=== PATIENT | male | born 1945 | race Caucasian/White ===

== ENCOUNTER 2018-04-11 23:12 | Inpatient (IN) | payer MEDICARE, OTHER ==
[2018-04-11] MEDS ORDERED: Aspirin 81mg Chewable Tab PO STA (23:33)
--- NOTE | 2018-04-11 23:35 | ED Physician Chart ---
ED Chief Complaint/HPI - Patient Information Date Seen:: 04/11/18 Time Seen:: 23:10 Chief Complaint:: Chest Pain History of Present Illness:: onset x 12 hours of intermittent, pressure, exertional chest pain radiating to left arm with paresthesias; no trauma, H/As, neck pain, SOB, cough, Abd. Pain, A /N/V/D/C, fever, chills, or urinary s/s Allergies:: Allergies Allergy/AdvReac Type Severity Reaction Status Date / Time No Known Allergies Allergy Verified 04/11/18 23:27 Vitals:: Vital Signs - 8 hr 04/11/18 04/11/18 23:12 23:33 Temp 98.2 F 98 F HR 60 63 RR 18 14 BP 143/65 136/63 O2 Sat % 100 99 Historian:: Patient, Family Member Review:: Nurse's Note Reviewed ED Review of Systems - Review of Systems General/Constitutional: No fever, No chills, No weight loss, No weakness, No diaphoresis, No edema, No loss of appetite Skin: No skin lesions, No rash, No bruising Head: No headache, No light-headedness Eyes: No loss of vision, No pain, No diplopia ENT: No earache, No nasal drainage, No sore throat, No tinnitus Neck: No neck pain, No swelling, No thyromegaly, No stiffness, No mass noted Cardio Vascular: Chest pain, No palpitations, No PND, No orthopnea, No edema Pulmonary: SOB, No cough, No sputum, No wheezing GI: No nausea, No vomiting, No diarrhea, No pain, No melena, No hematochezia, No constipation, No hematemesis G/U: No dysuria, No frequency, No hematuria Musculoskeletal: No bone or joint pain, No back pain, No muscle pain Endocrine: No polyuria, No polydipsia Psychiatric: No prior psych history, No depression, No anxiety, No suicidal ideation, No homicidal ideation, No auditory hallucination, No visual hallucination Hematopoietic: No bruising, No lymphadenopathy Allergic/Immuno: No urticaria, No angioedema Neurological: No syncope, No focal symptoms, No weakness, Paresthesia, No headache, No seizure, No dizziness, No confusion, No vertigo ED Past Medical History - Past Medical History Obtainable: Yes Past Medical History: HTN Family History: HTN Social History: Non Smoker, No Alcohol, No Drug Use, Surgical History: None Psychiatricy History: None Medication: Reviewed Family Medical History - Family Member Mother History Unknown: Yes ED Physical Exam - Physical Examination General/Constitutional: Awake, Well-developed, well-nourished, Alert, No distress, GCS 15, Non-toxic appearing, Ambulatory Head: Atraumatic Eyes: Lids, conjuctiva normal, PERRL, EOMI Skin: Nl inspection, No rash, No skin lesions, No ecchymosis, Well hydrated, No lymphadenopathy ENMT: External ears, nose nl, TM canals nl, Nasal exam nl, Lips, teeth, gums nl , Oropharynx nl, Tonsils nl Neck: Nontender, Full ROM w/o pain, No JVD, No nuchal rigidity, No bruit, No mass, No stridor Respiratory: Nl effort/Exclusion, Clear to Auscultation, No Wheeze/Rhonchi/Rales Cardio Vascular: RRR, No murmur, gallop, rubs, NL S1 S2, Carotid/Femoral/Distal pulses equal bilaterally GI: No tenderness/rebounding/guarding, No organomegaly, No hernia, Normal BS's, Nondistended, No mass/bruits, No McBurney tenderness : No CVA tenderness Extremities: No tenderness or effusion, Full ROM, normal strength in all extremities, No edema, Normal digits & nails Neuro/Psych: Alert/oriented, DTR's symmetric, Normal sensory exam, Normal motor strength, Judgement/insight normal, Mood normal, Normal gait, No focal deficits Misc: Normal back, No paraspinal tenderness ED Labs/Radiology/EKG Results - Lab Results Comments:: Reviewed - Radiology Results Comments:: CXR: CM; NAD - EKG Interpretations EKG Time:: 23:13 Rate & Rhythm: 63; NSR Comments:: non-specific st-t changes ED Septic Shock - . Is Septic Shock (SBP<90, OR Lactate>4 mmol\L) present?: No - <6hrs of presentation: Vital Signs: Vital Signs - 8 hr 04/11/18 04/11/18 23:12 23:33 Temp 98.2 F 98 F HR 60 63 RR 18 14 BP 143/65 136/63 O2 Sat % 100 99 ED Reassessment (Disposition) - Reassessment Reassessment Condition:: Improved - Diagnosis Diagnosis:: Dx; Chest Pain; Angina Pectoris; HTN; Hypokalemia; Unstable Angina - Aftercare/Follow up Instructions Aftercare/Follow-Up Instructions:: Counseled pt regarding lab results/diagnosis & need follow up, Counseled pt & family regarding lab results/diagnosis & need follow up - Patient Disposition Discharge/Transfer:: Acute Care w/in this hosp Accepting Physician:: Dr. Dior Time Called:: 19 Time Responded:: 00:20 Admitted to:: Telemetry Spoke to:: Dr. Dior Admitting Medical Physician:: Dr. Dior Condition at Disposition:: Stable, Improved
[2018-04-11 23:39] LABS: % BASOPHILS 0.9 % (0.0-2.0); % EOSINOPHILS 12.5 % (0.0-5.0); % LYMPHOCYTES 23.1 % (20.0-50.0); % MONOCYTES 6.9 % (2.0-10.0); % NEUTROPHILS 56.6 % (40.0-80.0); BASOPHILE ABSOLUTE 0.1 Th/cumm (0-0.2); HEMATOCRIT 46.8 % (41.0-60); HEMOGLOBIN 15.4 gm/dL (12-16); LYMPHOCYTE ABSOLUTE 1.9 Th/cmm (1.5-3.0); MEAN CELL VOLUME 84.6 fl (80-99); MEAN CORPUSCULAR HEMOGLOBIN 27.9 pg (27.0-31.0); MEAN PLATELET VOLUME 7.8 fl; MONOCYTE ABSOLUTE 0.6 Th/cmm (0.3-1.0); NEUTROPHILE ABSOLUTE 4.7 Th/cmm (1.8-8.0); PLATELET COUNT 211 Th/cmm (150-400); RED BLOOD COUNT 5.53 Mil/cmm (3.80-5.80); WHITE BLOOD COUNT 8.3 Th/cmm (4.8-10.8)
[2018-04-11] MEDS ORDERED: Aspirin 81mg Chewable Tab ONE (23:40)
[2018-04-11 23:53] LABS: URINE SOURCE CLEAN C
[2018-04-11 23:56] LABS: URINE BILIRUBIN NEGATIVE (NEGATIVE); URINE BLOOD TRACE (NEGATIVE); URINE GLUCOSE (UA) NEGATIVE (NEGATIVE); URINE KETONE NEGATIVE (NEGATIVE); URINE LEUKOCYTE ESTERASE NEGATIVE (NEGATIVE); URINE MICROSCOPIC INDICATED? YES; URINE NITRATE NEGATIVE (NEGATIVE); URINE PROTEIN NEGATIVE (NEGATIVE); URINE UROBILINOGEN 0.2 E.U./dL (0.2 - 1.0)
[2018-04-11 23:57] LABS: INR 0.95 (0.5-1.4); PROTHROMBIN TIME (TEST) 9.9 SECONDS (9.5-11.5)
[2018-04-12 00:01] LABS: ALB/GLOB RATIO 1.6 (1.0-1.8); ALBUMIN 4.1 gm/dL (4.2-5.5); ALKALINE PHOSPHATASE 112 U/L (34-104); AMYLASE SERUM 53 U/L (29-103); ANION GAP 11.5 (7.0-16.0); BILIRUBIN,TOTAL 0.5 mg/dL (0.3-1.0); BUN - UREA NITROGEN 20 mg/dL (7-25); CALCIUM SERUM 9.6 mg/dL (8.6-10.3); CARBON DIOXIDE 25.7 mEq/L (21.0-31.0); CHLORIDE 104 mEq/L (98-107); CHOLESTEROL 131 mg/dL (<200); CREATININE - SERUM 1.1 mg/dL (0.7-1.3); CREATININE KINASE 322 U/L (30-223); GLUCOSE 124 mg/dL (70-105); HDL -HIGH DENSITY LIPOPROTEIN 26 mg/dL (23-92); POTASSIUM SERUM 3.2 mEq/L (3.5-5.1); SGOT 19 U/L (13-39); SGPT/ALT 17 U/L (7-52); SODIUM SERUM 138 mEq/L (136-145); TOTAL PROTEIN,SERUM 6.6 gm/dL (6.0-8.3); TRIGLYCERIDES 579 mg/dL (<150)
[2018-04-12 00:04] LABS: URINE CLARITY CLEAR (CLEAR); URINE COLOR YELLOW
[2018-04-12] MEDS ORDERED: Potassium Chloride 20 mEq ER Tab PO ONE ×2 (00:05→00:36)
[2018-04-12 00:15] LABS: URINE BACTERIA OCCASIONAL /hpf (NONE SEEN); URINE EPITHELIAL CELLS OCCASIONAL /lpf (FEW); URINE RBC 0-2 /hpf (0-5); URINE WBC 0-2 /hpf (0-5)
[2018-04-12 00:16] LABS: DDIMER QUANT 242 ng/mL (100-400)
[2018-04-12 01:55] VITALS: BP 123/55
[2018-04-12] MEDS: NITROGLYCERIN OINT 2% 1 INCH PACKET TP SCH ×3 (05:59→18:48)
--- NOTE | 2018-04-12 08:39 | Diagnostic Imaging Report ---
CHEST X-RAY: AP view INDICATION: pain COMPARISON: None FINDINGS: Increased left basal lung markings are noted. Mild chronic lung changes are noted. There is no focal consolidation or pleural effusions The heart is normal in size. Atherosclerosis is noted. Degenerative changes of the spine are noted. There is evidence of calcific tendinitis of the left shoulder. IMPRESSION: Increased left basal lung markings which may be due to atelectasis versus scarring. No focal consolidation identified. Atherosclerotic vascular disease.
[2018-04-12] MEDS ORDERED: Non-Formulary Item 1 EA (Fluticasone/Salmeterol [Advair 100-50 Diskus] 1 PUFF) IH PRN (10:38)
[2018-04-12] MEDS ORDERED: Aspirin 81mg Chewable Tab PO SCH (10:45)
[2018-04-12] MEDS ORDERED: Non-Formulary Item 1 EA (Atorvastatin Calcium [Lipitor] 40 MG) PO SCH (10:45)
--- NOTE | 2018-04-12 12:04 | Diagnostic Imaging Report ---
Carotid ultrasound HISTORY: Carotid bruit COMPARISON: None Technique: Longitudinal and transverse sonographic sector images of the carotid arteries were obtained with doppler analysis. FINDINGS: Exam of the right side demonstrates moderate generalized atherosclerotic plaque formation. There is elevated velocity right CCA 163 cm/second. There is mild increased velocity the right distal ICA 128 cm/second. Exam of the left side demonstrates moderate to severe atherosclerotic vascular disease most pronounced within the left bulb and left internal carotid arteries. There is increased velocity of the left CCA, left carotid bulb and throughout the left internal carotid arteries. This is most pronounced in the left distal CCA with velocity at 246 cm/second. Antegrade vertebral artery flow is noted. Nodules are seen within the thyroid With right thyroid gland nodule measuring 1.1 x 1.1 cm the left thyroid gland nodule measuring 1.7 x 1.7 cm. IMPRESSION: Moderate to severe atherosclerotic vascular disease, left greater than right. There is diffuse increased velocity seen throughout the left side which may may be due to hemodynamically significant stenosis. Further assessment with dedicated CT angiography is recommended. Additional mild increased velocity of the right ICA at the distal aspect which may represent 50-69% vessel narrowing. Increased velocity right ECA is also noted which is nonspecific and may be due to combination atherosclerosis and vessel tortuosity. Thyroid gland nodules. Recommend dedicated thyroid ultrasound for further assessment.
--- NOTE | 2018-04-12 12:06 | Diagnostic Imaging Report ---
Head CT without intravenous contrast Indication: Numbness of the right leg pain in the back of the neck Comparison: None Technique: Axial images were obtained from the vertex to the skull base without IV contrast. Coronal reconstructions were made. Total DLP: 646, [id number] FINDINGS: Images of the brain obtained without contrast demonstrate no evidence of an acute hemorrhage. Mild Atrophy is noted. The ventricles and basal cisterns are patent. The staley-white matter differentiation is preserved. Atherosclerosis is noted. No evidence of a skull fracture or focal soft tissue swelling. There is mucosal thickening in the paranasal sinuses. IMPRESSION: No acute intracranial abnormality. If necessary MRI may be helpful. Mild atrophy. Atherosclerotic vascular disease.
--- NOTE | 2018-04-12 14:20 | History & Physical ---
ADMIT DATE: 04/12/2018 PATIENT IDENTIFICATION: A 72-year-old male. CHIEF COMPLAINT: Right leg numbness, neck pain radiating to the right side of the chest, lasted for 12 hours. HISTORY OF PRESENT ILLNESS: A 72-year-old [place] male with history of borderline diabetes mellitus, hypertension, hyperlipidemia, DJD, resides in [facility], has been followed by Dr. Feliz belongs to [facility] brought him to Emergency Room by family member for evaluation of symptoms lasted all day since morning. The patient was seen by Emergency Room MD and I was advised to admit this patient for further management. On further questioning, the patient tells me that the patient started to have acute onset of numbness mostly involving his right leg radiating up to the thigh, which continues to persist. Subsequently, he experiencing some neck pain, which radiated to the right side of his shoulder and he did have diaphoresis and shortness of breath. His symptoms were continues to persist and he also felt lightheaded in the form of room spinning around. The patient did feel generalized weakness and never had symptoms like this for all day, never had symptoms like this before and his symptoms continue to persist, so he asked his family member to bring him to the Emergency Room. PAST MEDICAL HISTORY: Remarkable for: 1. Hypertension. 2. Hyperlipidemia. 3. Degenerative joint disease. 4. Allergic asthma. 5. Osteoarthritis. MEDICATIONS AT HOME: Taking irbesartan, metoprolol, amlodipine, atorvastatin, and Advair. ALLERGIES: The patient is not allergic to medications. SOCIAL HISTORY: He is a retired cadena, lives with family. No history of smoking cigarette, alcohol, or drug use. FAMILY MEDICAL HISTORY: Remarkable for diabetes and hypertension. REVIEW OF SYSTEMS: The patient denies any headache, blurred vision, double vision, dysphagia, odynophagia, runny nose, stuffy nose, fever, chills, chest pain, abdominal pain, nausea, vomiting, headache, seizure, syncopal episode. The patient denies any hematuria, hematochezia, or melena. Denies any suicidal or homicidal ideation. PHYSICAL EXAMINATION: GENERAL: A 72-year-old, alert, awake, lying in the bed without any acute distress. VITAL SIGNS: Temperature 98.1, pulse is 61, respiratory rate 18, blood pressure 132/60. HEENT: Normocephalic, atraumatic. Extraocular muscles are intact. Tongue was pink and coated. No oral lesions or no exudate. No sinus tenderness. NECK: Supple, no JVD, no lymphadenopathy, thyromegaly. Carotid bruit on the left noted. HEART: Both heart sounds are regular. Grade 2/6 systolic murmur noted. No precordial bulge. No S3. CHEST: Lung equal in expansion, no expiratory wheezing. ABDOMEN: Soft. No guarding, no rigidity. Liver and spleen palpable. No palpable mass. EXTREMITIES: No edema, no cyanosis or clubbing. Peripheral pulses +2. No calf tenderness noted. NEUROLOGIC: He is alert, awake, oriented to time, place, person. 2-12 cranial nerves are intact. Power in upper and lower extremities 5+. Sensation to touch intact. Babinskis in both toes are going down. No cerebral sign. AVAILABLE DIAGNOSTIC DATA: White count of 8.3, hemoglobin 15.4, platelet count 211, eosinophilia 12.5. PT, PTT is normal. Potassium of 3.2. BUN and creatinine is normal. Glucose of 124, AST, ALT normal, alkaline phos was 112. CPK of 322, MB index is 4.3. Troponin 0.01. Albumin globulin ratios 1.6. Cholesterol profile was checked in the Emergency Room by Emergency Room MD remarkable triglyceride of 5 and 79. Urinalysis normal. EKG is normal sinus rhythm, no ST-T changes representing acute ischemia, sinus bradycardia noted. CLINICAL IMPRESSION: 1. A 72-year-old male with history of hypertension and hyperlipidemia, presented to Emergency Room with acute onset of numbness involving right leg associated with neck pain radiating to the right side of the chest and also noted to have symptoms of some shortness of breath and diaphoresis. Does have carotid bruit on the right side. Differential diagnosis of his symptoms needs to rule out neurological event like transient ischemic attack versus reversible ischemic neurological deficit. The patient needs further workup. 2. Left carotid bruit. 3. Hypertension. 4. Hyperlipidemia. 5. Degenerative joint disease. PLAN: The patient is admitted by me for chest pain, but clinically seems neurological event. The patient needs to be transferred to [facility] for further workup in the view of neurological service is not available this week. The patient will require MRI, carotid ultrasound, 2D echocardiogram along with further neurological workup based on the further data. Care plan has been reviewed with the patient's family, the patient as well as case management as well. JOB# [id number]
[2018-04-12] MEDS ORDERED: Polyvinyl Alcohol Ophth Soln 15 mL Bottle EACH EYE PRN (18:29)
--- NOTE | 2018-04-13 17:20 | Consultation ---
DATE OF CONSULTATION: 04/12/[address] Dior. HISTORY OF PRESENT ILLNESS: This 72-year-old female patient brought to the Emergency Room complaining of numbness in the right leg, right arm, right chest, right upper extremity, and pain in the chest going to the back associated with vertigo. No history of PND, orthopnea. PAST MEDICAL HISTORY: Hypertension, hyperlipidemia, degenerative joint disease, asthma, and osteoarthritis. FAMILY HISTORY: Unremarkable. SOCIAL HISTORY: No history of smoking, alcohol abuse. ALLERGIES: No known allergies. PHYSICAL EXAMINATION: VITAL SIGNS: Blood pressure 132/60, pulse 62, and respirations 28. HEAD: Normocephalic. No lumps or bumps. EYES: Pupils equal, reactive to light. Fundi show AV nicking, sclerae white, conjunctivae pink. NECK: Carotid 2+. Normal upstroke. JVD flat. Thyroid not palpable. Lymph nodes not palpable. CHEST: Shows increased AP diameter. No kyphosis, scoliosis. LUNGS: Bilateral bronchovesicular breath sounds. HEART: PMI fifth intercostal space with lateral to midclavicular line. S1, S2. No S3, S4, soft systolic murmur. ABDOMEN: Soft. Liver, spleen not palpable. No organomegaly. Bowel sounds active. NEUROLOGIC: No focal neurological deficit. EXTREMITIES: Peripheral pulses 2+. No pedal edema. CLINICAL IMPRESSION: Left carotid stenosis, hypertension, diabetes, hyperlipidemia, degenerative joint disease, and asthma. PLAN: The patient needs Neurology evaluation. The patient will be transferred to [facility]. JOB# [id number]
--- NOTE | 2018-04-13 17:44 | Cardiology ---
04/12/[address] Dior. PROCEDURE: Echocardiogram. M-MODE ECHOCARDIOGRAM: Mitral valve, anterior leaflet of mitral valve shows normal excursion, EF velocity. Posterior leaflet of the mitral valve shows normal excursion. Left ventricular posterior wall showed normal thickness, excursion. Interventricular septum showed normal thickness, excursion. Ejection fraction 65%. Left atrium normal. Aortic root shows normal dimension, normal excursion of aortic leaflets. CONCLUSION: Normal M-mode echo, ejection fraction 65%. 2D ECHO: Long axis view showed normal sized left ventricle with normal wall motion, mitral valve shows normal excursion. Left atrium normal. Aortic root shows normal dimension, normal excursion of aortic leaflets. Short axis view of mitral valve normal. Short axis view of aortic valve normal. Apical four chamber view showed normal sized left ventricle, left atrium, right ventricle, right atrium, tricuspid and mitral valve. Ejection fraction 65%. CONCLUSION: Hypertrophy of the left ventricle, ejection fraction 65%. Doppler study shows mild mitral regurgitation, mild tricuspid regurgitation, right ventricular systolic pressure 33 mmHg. JOB# [id number]
--- NOTE | 2018-04-19 09:18 | Discharge Summary ---
DATE OF DISCHARGE: 04/12/2018 DISPOSITION: Acute care facility. PRINCIPAL DIAGNOSES: 1. Acute onset of numbness involving the right leg, associated with symptoms of shortness of breath and diaphoresis, possible reversible ischemic neurological deficit. 2. Left carotid bruit. 3. Hypertension. 4. Hyperlipidemia. 5. Degenerative joint disease. BRIEF STATEMENT FOR THE REASON FOR ADMISSION: A 72-year-old male presented to Emergency Room for evaluation of right leg numbness associated with some left shoulder pain and chest discomfort on the right side. The patient was evaluated and admitted to the hospital. Please refer to my H and P for further information. HOSPITAL COURSE: The patient was seen by me and upon evaluation, it was noted that the patient's symptoms more suggestive of neurological symptoms rather than cardiac. The patient did have a significant amount of carotid bruit, which did require a CT scan of the head and carotid ultrasound. Carotid ultrasound did reveal significant stenosis along with a negative CAT scan of the head. Atherosclerotic disease was also reported as well. The patient belongs to [employer] and based on her insurance, no Neurology service was available. The patient was transferred to [facility]. The patient will be followed by [facility] team. JOB# [id number]
== END 2018-04-12 22:12 | disposition short-term general hospital (02) | DRG 68 ==
LOC: ER 23:12 → TELE 04-12 00:30
PROVIDERS: ADMIT Internal Medicine; ATTEND Internal Medicine
DX: I65.22 Occlusion and stenosis of left carotid artery (principal); I20.0 Unstable angina; I10 Essential (primary) hypertension; E87.6 Hypokalemia; E78.5 Hyperlipidemia, unspecified; M19.90 Unspecified osteoarthritis, unspecified site; J45.909 Unspecified asthma, uncomplicated; Z82.49 Family history of ischemic heart disease and other diseases of the circulatory system; Z83.3 Family history of diabetes mellitus
CPT/HCPCS: 36415-UA; 70450-TC; 71045-TC; 80053-TC; 80061-TC; 81001-TC; 81003-TC; 82150-TC; 82550-TC; 82553; 82948-90; 83880-TC; 84484-TC; 85025-TC; 85379-TC; 85610-TC; 93005; 93880-TC; 94760; Z7610